=== PATIENT | female | born 1985 | race Caucasian/White ===

== ENCOUNTER 2016-10-10 03:59 | Emergency (ER) | payer SELFPAY ==
[2016-10-10 04:18] VITALS: BP 127/97; PULSE 74; TEMP 98.6; BMI 29.2
[2016-10-10] MEDS ORDERED: PANTOPRAZOLE SODIUM 40 MG in SODIUM CHLORIDE 100 ML IVPB ONE (04:26)
[2016-10-10] MEDS ORDERED: SODIUM CHLORIDE 1,000 ML IV STA (04:26)
[2016-10-10] MEDS ORDERED: ONDANSETRON 4 MG/2 ML VIAL IVPUSH STA (04:26)
--- NOTE | 2016-10-10 04:26 | PDOC ---
History of Present Illness - General History Source: Patient Exam Limitations: No Limitations - History of Present Illness Initial Comments: 10/10/16 04:30 The patient is a 31 year old female with significant past medical history of ectopic s/p right fallopian tube who presents to the ED for 1 day of nausea, vomiting, and diarrhea. Patient reports she was in her usual state of health prior to going to bed, when she woke up the following day with nausea, nonbloody/nonbilious vomiting, and nonbloody diarrhea with some abdominal discomfort. States she is unable to tolerate foods/liquids secondary to vomiting. Patient reports not having any unusual to eat and her last meal was a panini, which was on Friday. She also has complaints of chills, diaphoresis, and lightheadedness. States her sister is also ill with similar symptoms, but states having different meals on Friday. Her LMP was on 09/25. The patient denies fever, cough, SOB, chest pain, and palpitations. Allergies: NKDA Social History: Social etoh use. Current smoker (half ppd). No drug use reported. Past Surgical History: s/p right fallopian tube PCP: Dr. Wyatt Mcconnell <Nithya Leyva - Last Filed: 10/10/16 04:30> - General History Source: Patient <Jackson Young - Last Filed: 10/10/16 06:07> - General Chief Complaint: Vomiting/Diarrhea Stated Complaint: VOMITTING Time Seen by Provider: 10/10/16 04:26 Past History <Nithya Leyva - Last Filed: 10/10/16 04:30> - Surgical History Abdominal Surgery: Yes (ectopic (removal of right fallopian)) - Reproductive History (#): 2 Para: 1 Ectopic : Yes (rt) - Immunization History Immunization Up to Date: Yes - Psycho/Social/Smoking Cessation Hx Anxiety: No Suicidal Ideation: No Smoking Status: Yes Smoking History: Current some day smoker Number of Cigarettes Smoked Daily: 4 Information on smoking cessation initiated: No 'Breaking Loose' booklet given: 09/26/13 Hx Alcohol Use: No Drug/Substance Use Hx: No Substance Use Type: None <Jackson Young - Last Filed: 10/10/16 06:07> - Past Medical History Allergies/Adverse Reactions: Allergies Allergy/AdvReac Type Severity Reaction Status Date / Time No Known Allergies Allergy Verified 10/10/16 04:16 Home Medications: Ambulatory Orders Ondansetron [Zofran *Odt*] 4 mg SL TID #30 od.tablet 10/10/16 Review of Systems - Review of Systems Able to Perform ROS?: Yes Comments:: 10/10/16 04:30 CONSTITUTIONAL: +chills, diaphoresis, decreased PO intake Absent: fever, no fatigue EYES: Absent: visual changes ENT: Absent: ear pain, no sore throat CARDIOVASCULAR: +lightheadedness Absent: chest pain, no palpitations RESPIRATORY: Absent: cough, no SOB GI: +abdominal discomfort, nausea, vomiting, diarrhea Absent: no constipation GENITOURINARY: Absent: dysuria, no frequency, no hematuria MUSCULOSKELETAL: Absent: back pain, no arthralgia, no myalgia SKIN: Absent: rash NEURO: Absent: headache <Nithya Leyva - Last Filed: 10/10/16 04:30> *Physical Exam - Vital Signs Last Vital Signs Temp Pulse Resp BP Pulse Ox 98.6 F 74 20 127/97 100 10/10/16 04:16 10/10/16 04:16 10/10/16 04:16 10/10/16 04:16 10/10/16 04:16 - Physical Exam Comments: 10/10/16 04:30 GENERAL: Well-appearing, well-nourished. No apparent distress. HEENT: Normocephalic, atraumatic. PERRL, EOM intact. Dry oral mucosa. CARDIOVASCULAR: Normal S1, S2. Regular rate and rhythm. PULMONARY: Clear to auscultation bilaterally. ABDOMEN: Soft, non-distended, non-tender. EXTREMITIES: Normal ROM in all four extremities. No gross deformities. SKIN: Warm, dry. No rash NEUROLOGICAL: No focal neurological deficits. <Nithya Leyva - Last Filed: 10/10/16 04:30> - Vital Signs Last Vital Signs Temp Pulse Resp BP Pulse Ox 98.6 F 74 20 127/97 100 10/10/16 04:16 10/10/16 04:16 10/10/16 04:16 10/10/16 04:16 10/10/16 04:16 <Jackson Young - Last Filed: 10/10/16 06:07> ED Treatment Course - LABORATORY CBC & Chemistry Diagram: 10/10/16 04:51 10/10/16 04:51 <Jackson Young - Last Filed: 10/10/16 06:07> Medical Decision Making - Medical Decision Making 10/10/16 06:01 Dr. Young: The scribe's documentation has been prepared under my direction and personally reviewed by me in its entirery. I confirm that the note above accurately reflects all work, treatment, procedures, and medical decision making performed by me. Pt feels better after IVF. tolerated PO fluids well. Will discharge. Follow up with pcp. Rx Zofran <Jackson Young - Last Filed: 10/10/16 06:07> *DC/Admit/Observation/Transfer - Attestations Scribe Attestion: 10/10/16 04:30 Documentation prepared by Nithya Leyva, acting as product manager medical device for Jackson Young MD/DO. <Nithya Leyva - Last Filed: 10/10/16 04:30> - Discharge Dispostion Admit: No <Jackson Young - Last Filed: 10/10/16 06:07> Diagnosis at time of Disposition: Gastroenteritis - Discharge Dispostion Disposition: HOME Condition at time of disposition: Stable - Prescriptions Prescriptions: Ondansetron [Zofran *Odt*] 4 mg SL TID #30 od.tablet - Referrals Referrals: Wyatt Mcconnell [Primary Care Provider] - - Patient Instructions Printed Discharge Instructions: Gastroenteritis Diet, DI for Viral Gastroenteritis -- Adult - Post Discharge Activity Work/School Note: Back to Work
[2016-10-10] MEDS ORDERED: ONDANSETRON 4 MG/2 ML VIAL ONE (04:39)
[2016-10-10] MEDS ORDERED: PANTOPRAZOLE SODIUM 100 ML IVPB ONE (04:39)
[2016-10-10 04:56] LABS: BASOPHIL 0.3 % (0-2.0); MCH 28.6 pg (25.7-33.7); MCHC 33.5 g/dl (32.0-36.0); MEAN CELL VOLUME 85.4 fl (80-96); MEAN PLT VOLUME 8.6 fl (7.5-11.1); NEUTROPHILS 82.3 % (42.8-82.8); PLATELET COUNT 264 K/MM3 (134-434); WHITE BLOOD COUNT 7.3 K/mm3 (4.0-10.0)
[2016-10-10 05:33] LABS: ALBUMIN 3.9 g/dl (3.4-5.0); AMYLASE 38 U/L (25-115); ANION GAP 4 (8-16); BILIRUBIN,TOTAL 0.5 mg/dL (0.2-1.0); CALCIUM 9.2 mg/dL (8.5-10.1); CO2 25 mmol/L (21-32); CREATININE 0.8 mg/dL (0.55-1.02); GLUCOSE,RANDOM 108 mg/dL (74-106); SGPT/ALT 25 U/L (12-78); TOT PROT 7.9 g/dl (6.4-8.2)
[2016-10-10 05:34] LABS: ALK PHOS 71 U/L (45-117)
[2016-10-10 05:39] LABS: MAGNESIUM 1.8 mg/dL (1.8-2.4); SGOT/AST 41 U/L (15-37)
[2016-10-10] MEDS ORDERED: ACETAMINOPHEN 325 MG TABLET (FP) PO ONE (05:55)
[2016-10-10] MEDS ORDERED: ACETAMINOPHEN 325 MG TABLET (FP) ONE (06:00)
== END 2016-10-10 06:14 | disposition home or self-care (01) ==
LOC: JER 03:59
PROC: 3E033GC Introduction of Other Therapeutic Substance into Peripheral Vein, Percutaneous Approach (ICD-10-PCS; principal; 2016-10-10)
DX: K52.9 Noninfective gastroenteritis and colitis, unspecified (principal); F17.210 Nicotine dependence, cigarettes, uncomplicated
CPT/HCPCS: 36415; 80053; 82150; 83690; 83735; 84703; 85025; 99283-25

== ENCOUNTER 2017-02-15 07:07 | Emergency (ER) | payer OTHER ==
[2017-02-15 07:30] VITALS: BMI 29.2
[2017-02-15 07:58] LABS: URINE APPEARANCE CLEAR; URINE BILIRUBIN NEGATIVE (NEGATIVE); URINE BLOOD 2+ (NEGATIVE); URINE COLOR YELLOW; URINE GLUCOSE (UA) NEGATIVE (NEGATIVE); URINE KETONE NEGATIVE (NEGATIVE); URINE NITRITE NEGATIVE (NEGATIVE); URINE PROTEIN NEGATIVE (NEGATIVE); URINE UROBILINOGEN NEGATIVE mg/dL (0.2-1.0)
[2017-02-15 08:01] LABS: URINE MUCUS RARE; URINE RBC 5 /hpf (0-3); URINE WBC 2 /hpf (3-5)
--- NOTE | 2017-02-15 08:13 | PDOC ---
History of Present Illness - General Chief Complaint: Vaginal Bleeding Stated Complaint: 5 WEEKS - SPOTTING Time Seen by Provider: 02/15/17 07:37 - History of Present Illness Initial Comments: 02/15/17 09:29 The patient is a 31 year old 5 week female with a history of ectopic s/p right fallopian tube removal who presents for evaluation of vaginal spotting. The patient reports a 2 day history of vaginal spotting prompting her presentation to the ED for evaluation. She denies any abdominal pain, fevers, chills, SOB, chest pain, or changes with urination or bowel movements. She states she follows with an tomography technologist at an outside facility and was seen 2 days ago with a normal US at that visit and has a follow up appointment with them in 2 days. Past History - Past Medical History Allergies/Adverse Reactions: Allergies Allergy/AdvReac Type Severity Reaction Status Date / Time No Known Allergies Allergy Verified 02/15/17 07:15 Home Medications: Ambulatory Orders Ondansetron [Zofran *Odt*] 4 mg SL TID #30 od.tablet 10/10/16 - Surgical History Abdominal Surgery: Yes (ectopic (removal of right fallopian)) - Reproductive History Is Patient Now?: Yes (#): 3 Para: 1 Ectopic : Yes (rt) - Immunization History Immunization Up to Date: Yes - Suicide/Smoking/Psychosocial Hx Smoking Status: Yes Smoking History: Former smoker Have you smoked in the past 12 months: Yes Number of Cigarettes Smoked Daily: 4 If you are a former smoker, when did you quit?: 2017 Information on smoking cessation initiated: Yes 'Breaking Loose' booklet given: 02/15/17 Hx Alcohol Use: No Drug/Substance Use Hx: No Substance Use Type: None Review of Systems - Review of Systems Comments:: 02/15/17 09:36 Constitutional: No fevers, chills, fatigue, malaise HEENT: No Rhinorrhea, nasal congestion, Cardiovascular: No chest pain, syncope, palpitations, lightheadedness Respiratory: No Cough, SOB, Hemoptysis, Gastrointestinal: No Abdominal pain, Nausea, Vomiting, Constipation, Diarrhea, Genitourinary: Vaginal bleeding. No Dysuria, Frequency, Urgency, Hesitancy, Hematuria, Flank pain Musculoskeletal: No Myalgia, arthralgia Skin: No rashes, bruising, pallor Neurologic: No Headache, Dizziness, Numbness, Weakness, or Tingling *Physical Exam - Vital Signs Last Vital Signs Temp Pulse Resp BP Pulse Ox 98.9 F 99 H 16 128/67 100 02/15/17 07:15 02/15/17 07:15 02/15/17 07:15 02/15/17 07:15 02/15/17 07:15 - Physical Exam Comments: 02/15/17 09:37 General Appearance: Nourished. No Apparent Distress HEENT: EOMI, DAGOBERTO. Respiratory/Chest: Lungs Clear, Normal Breath Sounds. No Crackles, Rales, Rhonchi, Wheezing Cardiovascular: Regular Rhythm, Regular Rate. No Murmur, Gallops, Rubs Gastrointestinal/Abdominal: Normal Bowel Sounds, Soft. No Guarding, Rebound, Tenderness Pelvic Exam: Normal external exam. Closed cervical OS with some blood in the vaginal canal. No CMT or adenexal tenderness Musculoskeletal: No CVA Tenderness Extremity: Normal Capillary Refill Integumentary: Normal Color, Dry, Warm Neurologic: Fully Oriented, Alert, Normal Mood/Affect, Normal Response, ED Treatment Course - LABORATORY CBC & Chemistry Diagram: 02/15/17 08:20 02/15/17 08:20 - ADDITIONAL ORDERS Additional order review: Laboratory Results 02/15/17 07:30 Urine Color Yellow Urine Appearance Clear Urine pH 6.0 Urine Protein Negative Urine Glucose (UA) Negative Urine Ketones Negative Urine Blood 2+ H Urine Nitrite Negative Urine Bilirubin Negative Urine Urobilinogen Negative Urine RBC 5 Urine WBC 2 Ur Epithelial Cells Rare Urine Mucus Rare Urine HCG, Qual Positive Medical Decision Making - Medical Decision Making 02/15/17 09:38 The patient is a 31 year old 5 week female with a history of ectopic s/p right fallopian tube removal who presents for evaluation of vaginal spotting. Differential includes but is not limited to: Ectopic , missed . threatened , UTI, metabolic derangement. Given her lack of pain, it is unlikely the patient is experiencing an ectopic . We will obtain a cbc, cmp, beta-quant, UA and transvaginal US to evaluate. We will continue to monitor and reassess. 02/15/17 10:09 UA is unremarkable. cbc, cmp is unremarkable. beta-quant is 1600+. Transvaginal US demonstrates no gestational sac as well as no pelvic free fluid as read by our radiologist. Given her history of vaginal bleeding as well as no visualized gestational sac, it is possible she has experienced a spontaneous . However, we cannot rule out ectopic given a lack of prior US. The patient has follow up scheduled with her tomography technologist in 2 days and will keep that appointment. We stressed the importance of following up with her OB for a repeat US and beta-quant. We are comfortable discharging the patient home at this time. The patient voiced understanding and is agreeable with the plan. *DC/Admit/Observation/Transfer Diagnosis at time of Disposition: Hemorrhage in early - Discharge Dispostion Disposition: HOME Condition at time of disposition: Good Admit: No - Referrals Referrals: Wyatt Mcconnell [Primary Care Provider] - - Patient Instructions Printed Discharge Instructions: DI for Vaginal Bleeding During Additional Instructions: Please return to the ER if you experience concerning or worsening symptoms including fevers, chills, worsening abdominal pain or bleeding. Please keep your follow up appointment with your ob doctor to discuss your ER visit and have a repeat US performed.
[2017-02-15 08:31] LABS: BASOPHIL 0.8 % (0-2.0); EOSINOPHIL 1.9 % (0-4.5); MCH 29.6 pg (25.7-33.7); MCHC 34.4 g/dl (32.0-36.0); MEAN CELL VOLUME 86.1 fl (80-96); MEAN PLT VOLUME 8.1 fl (7.5-11.1); NEUTROPHILS 64.2 % (42.8-82.8); PLATELET COUNT 304 K/MM3 (134-434); RDW 13.7 % (11.6-15.6)
[2017-02-15 08:54] LABS: ALBUMIN 3.8 g/dl (3.4-5.0); ANION GAP 4 (8-16); BILIRUBIN,TOTAL 0.4 mg/dL (0.2-1.0); CALCIUM 8.4 mg/dL (8.5-10.1); CO2 24 mmol/L (21-32); CREATININE 0.6 mg/dL (0.55-1.02); GLUCOSE,RANDOM 87 mg/dL (74-106); SGOT/AST 7 U/L (15-37); SGPT/ALT 19 U/L (12-78); TOT PROT 7.2 g/dl (6.4-8.2)
[2017-02-15 09:09] LABS: ALK PHOS 64 U/L (45-117)
--- NOTE | 2017-02-15 10:22 | PDOC ---
Attending Attestation - Resident Resident Name: DianaShaquille - ED Attending Attestation I have performed the following: I have examined & evaluated the patient, The case was reviewed & discussed with the resident, I agree w/resident's findings & plan, Exceptions are as noted - HPI HPI: 02/15/17 10:21 31 F @ approx 5 weeks presenting with vaginal spotting. Pt reportedly had a routine US 2 days ago that did now show an IUP. She was told that this was to be expected based on her serum HCG. She does not know the number that was measured. Pt states that since yesterday she has had some vaginal spotting without pain. She denies seeing any passage of large clots. Pt denies any other symptoms. - Physicial Exam PE: 02/15/17 10:27 "GENERAL: Awake, alert, and fully oriented, in no acute distress HEAD: No signs of trauma EYES: PERRLA, EOMI, sclera anicteric, conjunctiva clear ENT: Auricles normal inspection, hearing grossly normal, nares patent, oropharynx clear without exudates. Moist mucosa NECK: Nontender, no stepoffs, Normal ROM, supple, no lymphadenopathy, JVD, or masses LUNGS: Breath sounds equal, clear to auscultation bilaterally. No wheezes, and no crackles HEART: Regular rate and rhythm, normal S1 and S2, no murmurs, rubs or gallops ABDOMEN: Soft, nontender, normoactive bowel sounds. No guarding, no rebound. No masses : scant blood in vault, os closed, no CMT, no adnexal masses EXTREMITIES: Normal range of motion, no edema. No clubbing or cyanosis. No cords, erythema, or tenderness NEUROLOGICAL: Cranial nerves II through XII intact. 5/5 strength and sensation in all extremities, Normal speech, normal gait SKIN: Warm, Dry, normal turgor, no rashes or lesions noted. " - Medical Decision Making 02/15/17 10:27 31 F @ 5 weeks , presenting with vaginal spotting. Will need to r/o ectopic vs spontaneous . - TVUS shows no IUP, no masses in adnexa or fallopian tubes - HCG quant is 1600, which is near discriminatory zone - Pt informed of results and understands that we cannot r/o ectopic or miscarriage at this time - Pt has appointment with OB in 2 days.
[2017-02-15 10:55] VITALS: BP 132/75; PULSE 71; TEMP 98.2
[2017-02-15 11:33] LABS: URINE LEUK ESTERASE Negative (NEGATIVE)
== END 2017-02-15 10:55 | disposition home or self-care (01) ==
LOC: JER 07:07
DX: O26.891 Other specified pregnancy related conditions, first trimester (principal); O20.8 Other hemorrhage in early pregnancy; Z3A.01 Less than 8 weeks gestation of pregnancy
CPT/HCPCS: 36415; 76817-TC; 80053; 81003; 81015; 84702; 84703; 85025; 86850; 86900; 86901; 99282-25

== ENCOUNTER 2017-09-27 00:55 | Emergency (ER) | payer OTHER ==
[2017-09-27 01:45] VITALS: BP 103/64; PULSE 73; TEMP 97.5
--- NOTE | 2017-09-27 02:05 | PDOC ---
History of Present Illness - General Chief Complaint: Constipation Stated Complaint: CONSTIPATION Time Seen by Provider: 09/27/17 01:37 History Source: Patient Exam Limitations: No Limitations - History of Present Illness Initial Comments: 09/27/17 06:29 32-year-old female presents to the ER complaining of constipation 16 hours. Patient states she had a large bowel movement 16 hours ago and denies fever, chills, nausea/vomiting, headache, dizziness, lightheadedness, neck pain/ stiffness, back pains, chest pain, shortness of breath, abdominal pains, flank pains, urinary symptoms: Frequency/urgency/hesitancy, hematuria. Past History - Past Medical History Allergies/Adverse Reactions: Allergies Allergy/AdvReac Type Severity Reaction Status Date / Time No Known Allergies Allergy Verified 09/27/17 01:42 Home Medications: Ambulatory Orders Ondansetron [Zofran *Odt*] 4 mg SL TID #30 od.tablet 10/10/16 - Surgical History Abdominal Surgery: Yes (ectopic (removal of right fallopian)) - Reproductive History (#): 3 Para: 1 Ectopic : Yes (rt) - Immunization History Immunization Up to Date: Yes - Suicide/Smoking/Psychosocial Hx Smoking Status: Yes Smoking History: Never smoked Have you smoked in the past 12 months: No Number of Cigarettes Smoked Daily: 4 If you are a former smoker, when did you quit?: 2017 Information on smoking cessation initiated: No 'Breaking Loose' booklet given: 09/26/13 Hx Alcohol Use: No Drug/Substance Use Hx: No Substance Use Type: None Review of Systems - Review of Systems Able to Perform ROS?: Yes Comments:: 09/27/17 06:30 CONSTITUTIONAL: Absent: fever, chills, diaphoresis, generalized weakness, malaise, loss of appetite HEENT: Absent: rhinorrhea, nasal congestion, throat pain, throat swelling, difficulty swallowing, mouth swelling, ear pain, eye pain, visual Changes CARDIOVASCULAR: Absent: chest pain, loss of consciousness, palpitations, irregular heart rate, peripheral edema RESPIRATORY: Absent: cough, shortness of breath, dyspnea with exertion, orthopnea, wheezing, stridor, hemoptysis GASTROINTESTINAL: +"constipation" Absent: abdominal pain, abdominal distension, nausea, vomiting, diarrhea, melena , hematochezia GENITOURINARY: Absent: dysuria, frequency, urgency, hesitancy, hematuria, flank pain, genital pain MUSCULOSKELETAL: Absent: myalgia, arthralgia, joint swelling SKIN: Absent: rash, itching, pallor HEMATOLOGIC/IMMUNOLOGIC: Absent: easy bleeding, easy bruising, lymphadenopathy, frequent infections ENDOCRINE: Absent: unexplained weight gain, unexplained weight loss, heat intolerance, cold intolerance NEUROLOGIC: Absent: headache, focal weakness or paresthesias, dizziness, unsteady gait, seizure, mental status changes, bladder or bowel incontinence PSYCHIATRIC: Absent: anxiety, depression, suicidal or homicidal ideation, hallucinations. Is the patient limited Wolof proficient: No *Physical Exam - Vital Signs Last Vital Signs Temp Pulse Resp BP Pulse Ox 97.5 F L 73 18 103/64 99 09/27/17 01:37 09/27/17 01:37 09/27/17 01:37 09/27/17 01:37 09/27/17 01:37 - Physical Exam Comments: 09/27/17 06:31 GENERAL: Well developed, well nourished. Awake and alert. No acute distress. HEENT: Normocephalic, atraumatic. PERRLA, EOMI. No conjunctival pallor. Sclera are non- icteric. Moist mucous membranes. Oropharynx is clear. NECK: Supple. Full ROM. No JVD. Carotid pulses 2+ and symmetric, without bruits. No thyromegaly. No lymphadenopathy. CARDIOVASCULAR: Regular rate and rhythm. No murmurs, rubs, or gallops. Distal pulses are 2+ and symmetric. PULMONARY: No evidence of respiratory distress. Lungs clear to auscultation bilaterally. No wheezing, rales or rhonchi. ABDOMINAL: Soft. Non-tender. Non-distended. No rebound or guarding. No organomegaly. Normoactive bowel sounds. MUSCULOSKELETAL Normal range of motion at all joints. No bony deformities or tenderness. No CVA tenderness. EXTREMITIES: No cyanosis. No clubbing. No edema. No calf tenderness. SKIN: Warm and dry. Normal capillary refill. No rashes. No jaundice. NEUROLOGICAL: Alert, awake, appropriate. Cranial nerves 2-12 intact. No deficits to light touch and temperature in face, upper extremities and lower extremities. No motor deficits in the in face, upper extremities and lower extremities. Normoreflexic in the upper and lower extremities. Normal speech. Toes are down- going bilaterally. Gait is normal without ataxia. PSYCHIATRIC: Cooperative. Good eye contact. Appropriate mood and affect. ED Treatment Course - LABORATORY CBC & Chemistry Diagram: 09/27/17 02:06 09/27/17 02:06 *DC/Admit/Observation/Transfer Diagnosis at time of Disposition: Constipation Qualifiers: Constipation type: unspecified constipation type Qualified Code(s): K59.00 - Constipation, unspecified - Discharge Dispostion Disposition: HOME Condition at time of disposition: Fair Decision to Admit order: No - Referrals Referrals: ON STAFF,NOT [Non Staff, Medical] - Chema Carrasco DO [Staff Physician] - - Patient Instructions Printed Discharge Instructions: DI for Constipation Additional Instructions: Increase fluids Increase fiber Follow-up with the rubber goods cutter finisher listed on your discharge Return back to the ER for severe/persistent or worsening symptoms - Post Discharge Activity Forms/Work/School Notes: Back to Work
[2017-09-27 02:29] LABS: BASO % 0.9 % (0-2.0); EOS % 2.8 % (0-4.5); HEMATOCRIT 38.1 % (32.4-45.2); HEMOGLOBIN 12.9 GM/dL (10.7-15.3); LYMPH % 29.6 % (8-40); MCH 29.4 pg (25.7-33.7); MCHC 33.8 g/dl (32.0-36.0); MEAN CELL VOLUME 86.7 fl (80-96); MEAN PLT VOLUME 8.3 fl (7.5-11.1); MONO % 6.3 % (3.8-10.2); NEUT % 60.4 % (42.8-82.8); PLATELET COUNT 292 K/MM3 (134-434); RBC 4.39 M/mm3 (3.60-5.2); RDW 14.2 % (11.6-15.6)
[2017-09-27 03:00] LABS: ALBUMIN 3.7 g/dl (3.4-5.0); ALK PHOS 65 U/L (45-117); ANION GAP 7 (8-16); BILIRUBIN,TOTAL 0.2 mg/dL (0.2-1.0); BLOOD UREA NITROGEN 10 mg/dL (7-18); CHLORIDE 107 mmol/L (98-107); CO2 25 mmol/L (21-32); CREATININE 0.5 mg/dL (0.55-1.02); GLUCOSE,RANDOM 89 mg/dL (74-106); POTASSIUM 4.1 mmol/L (3.5-5.1); SGOT/AST 12 U/L (15-37); SGPT/ALT 18 U/L (12-78); SODIUM 139 mmol/L (136-145); TOT PROT 6.9 g/dl (6.4-8.2)
== END 2017-09-27 04:45 | disposition home or self-care (01) ==
LOC: JER 00:55
DX: K59.00 Constipation, unspecified (principal); Z87.891 Personal history of nicotine dependence
CPT/HCPCS: 36415; 80053; 84703; 85025; 99281-25

== ENCOUNTER 2020-08-05 08:07 | Inpatient (IN) | payer OTHER ==
[2020-08-05 08:19] VITALS: TEMP 98.3; BMI 32.2
[2020-08-05] MEDS ORDERED: METOCLOPRAMIDE HCL INJECTION 10 MG/2 ML VIAL IVPB ONE (08:45)
[2020-08-05] MEDS ORDERED: FAMOTIDINE 20 MG/50 ML IVPB 20 MG/50 ML MG IVPB ONE ×2 (08:46→09:38)
[2020-08-05] MEDS ORDERED: SODIUM CHLORIDE 0.9% 500 ML INFUS.BAG IV ONE (08:53)
[2020-08-05] MEDS ORDERED: METOCLOPRAMIDE HCL INJECTION 10 MG/2 ML VIAL ONE (09:38)
[2020-08-05 10:42] LABS: BASO % 0.4 % (0-2.0); EOS % 1.5 % (0-4.5); HEMATOCRIT 38.6 % (32.4-45.2); HEMOGLOBIN 13.1 GM/dL (10.7-15.3); LYMPH % 27.9 % (8-40); MCH 28.5 pg (25.7-33.7); MCHC 33.8 g/dl (32.0-36.0); MEAN CELL VOLUME 84.2 fl (80-96); MEAN PLT VOLUME 8.6 fl (7.5-11.1); MONO % 5.5 % (3.8-10.2); NEUT % 64.7 % (42.8-82.8); PLATELET COUNT 368 K/MM3 (134-434); RBC 4.59 M/mm3 (3.60-5.2); RDW 14.3 % (11.6-15.6); WHITE BLOOD COUNT 10.5 K/mm3 (4.0-10.0)
[2020-08-05 10:48] LABS: INR 1.03 (0.83-1.09); PROTHROMBIN TIME (PATIENT) 12.4 SEC (9.7-13.0); URINE APPEARANCE CLOUDY; URINE BILIRUBIN NEGATIVE (NEGATIVE); URINE COLOR YELLOW; URINE GLUCOSE (UA) NEGATIVE (NEGATIVE); URINE KETONE NEGATIVE (NEGATIVE); URINE LEUK ESTERASE NEGATIVE (NEGATIVE); URINE NITRITE NEGATIVE (NEGATIVE); URINE PROTEIN NEGATIVE (NEGATIVE); URINE UROBILINOGEN 0.2 mg/dL (0.2-1.0)
[2020-08-05 10:51] LABS: ACTIVATED PTT 32.8 SECONDS (25.2-36.5)
[2020-08-05 11:01] LABS: CHLORIDE 107 mmol/L (98-107); SODIUM 140 mmol/L (136-145)
[2020-08-05 11:03] LABS: ALBUMIN 3.8 g/dl (3.4-5.0); CALCIUM 9.5 mg/dL (8.5-10.1); GLUCOSE,RANDOM 86 mg/dL (74-106)
[2020-08-05 11:04] LABS: BLOOD UREA NITROGEN 11.2 mg/dL (7-18)
[2020-08-05 11:05] LABS: ANION GAP 7 MMOL/L (8-16); CO2 26 mmol/L (21-32); LIPASE 43 U/L (73-393)
[2020-08-05 11:07] LABS: CREATININE 0.6 mg/dL (0.55-1.3); SGOT/AST 13 U/L (15-37); SGPT/ALT 20 U/L (13-61)
[2020-08-05 11:08] LABS: BILIRUBIN,TOTAL 0.5 mg/dL (0.2-1)
[2020-08-05 11:09] LABS: TOT PROT 7.2 g/dl (6.4-8.2)
[2020-08-05 11:10] LABS: ALK PHOS 72 U/L (45-117); PHOSPHOROUS 2.6 mg/dL (2.5-4.9)
[2020-08-05] MEDS ORDERED: METOPROLOL TARTRATE 25 MG TABLET (FP) PO ONE (11:38)
[2020-08-05] MEDS ORDERED: METOPROLOL TARTRATE 25 MG TABLET (FP) ONE (11:57)
[2020-08-05] MEDS ORDERED: ACETAMINOPHEN 325 MG TABLET (FP) PO PRN (13:46)
[2020-08-05] MEDS ORDERED: ONDANSETRON 4 MG/2 ML VIAL IVPUSH PRN (13:53)
[2020-08-05 16:23] VITALS: BP 118/83; PULSE 83
[2020-08-05] MEDS ORDERED: METOCLOPRAMIDE HCL 10 MG/10 ML UNIT DOSE CUP PO SCH (16:30)
[2020-08-05] MEDS ORDERED: FAMOTIDINE 20 MG/50 ML IVPB 20 MG/50 ML MG IVPB SCH (22:00)
== END 2020-08-05 16:50 | disposition home or self-care (01) | DRG 201 ==
LOC: JER 08:07 → JERBED 11:40
PROVIDERS: ADMIT Internal Medicine; ATTEND Internal Medicine
DX: I48.91 Unspecified atrial fibrillation (principal); R11.0 Nausea; F12.90 Cannabis use, unspecified, uncomplicated
CPT/HCPCS: 36415; 71046-TC-FY; 80053; 81003; 82550; 83690; 83735; 84100; 84443; 84484; 84703; 85025; 85610; 85730; 87086; 93005; 93010; 99285-25; C9803; U0003; U0005